=== PATIENT | female | born 1975 | race Caucasian/White ===

== ENCOUNTER → 2019-12-10 15:03 | Outpatient (CLI) | payer OTHER, SELFPAY ==
--- NOTE | ~2019-12-10 | MM_ITS ---
EXAMINATION: MM screening [place] [facility] BI w urvashi HISTORY: Screening mammogram TECHNIQUE: Craniocaudal and mediolateral oblique 3-D tomosynthesis images were obtained and synthetic 2-D images were generated. CAD analysis was submitted and interpreted. COMPARISON: 12/30/2017, 09/14/2016, 08/20/2013 BREAST PARENCHYMAL COMPOSITION: There are scattered areas of fibroglandular density. FINDINGS: RIGHT BREAST: There is a possible mass in the anterior third of the upper outer right breast best carla reciated 5 cm from the nipple on the craniocaudal view. LEFT BREAST: There is no evidence of suspicious mass, calcification, or architectural distortion to s uggest malignancy. There has been no significant interval change. IMPRESSION: 1. Possible right breast mass. 2. Additional mammographic views and possible breast ultrasound are recommended. BI-RADS Category 0: Incomplete: Needs additional imaging evaluation. Reviewed, dictated and finalized at location B. IMPRESSION: 1. Possible right breast mass. 2. Additional mammographic views and possible breast ultrasound are recommended . BI-RADS Category 0: Incomplete: Needs additional imaging evaluation.
== END ==
PROVIDERS: Visit Provider Nurse Practitioner
DX: Z12.31 Encounter for screening mammogram for malignant neoplasm of breast (principal); R92.8 Other abnormal and inconclusive findings on diagnostic imaging of breast
CPT/HCPCS: 77063; 77067

== ENCOUNTER → 2019-12-31 08:19 | Outpatient (CLI) | payer OTHER, SELFPAY ==
--- NOTE | ~2019-12-31 | MMUS_ITS ---
EXAMINATION: MM diagnostic mammo unilat RT, US breast RT limited HISTORY: Possible right breast mass in anterior third of upper outer quadrant TECHNIQUE: Additional 3-D tomosynthesis images of the right breast were performed and synthetic 2-D i mages were generated. CAD analysis was submitted and interpreted. High resolution upper outer quadran t right breast ultrasound was performed. COMPARISON: 12/10/2019 bilateral digital screening mammogram FINDINGS: MAMMOGRAPHIC FINDINGS: An approximately 9 mm circumscribed opacity is noted anteriorly in the upper-outer quadrant of the ri ght breast. ULTRASOUND: 10:00 4 cm from nipple, right breast: 7 x 9 mm simple cyst with through transmission posterior enhanc ement. No suspicious mass or shadowing is detected. IMPRESSION: 1. Benign 7 x 9 mm 10:00 right breast cyst 2. Routine mammographic screening is recommended BI-RADS Category 2: Benign finding(s). Reviewed, dictated and finalized at location A. IMPRESSION: 1. Benign 7 x 9 mm 10:00 right breast cyst 2. Routine mammographic screening is recommended BI-RADS Category 2: Benign finding(s).
== END ==
PROVIDERS: PCP Family Medicine; Visit Provider Obstetrics & Gynecology Gynecology
DX: R92.8 Other abnormal and inconclusive findings on diagnostic imaging of breast (principal)
CPT/HCPCS: 76642; 77065

== ENCOUNTER → 2020-12-25 01:46 | Outpatient (CLI) | payer OTHER, SELFPAY ==
[2020-12-25 17:52] LABS: SARS-CoV-2 RNA PCR Negative
== END ==
PROVIDERS: PCP Family Medicine; Visit Provider Physician Assistant
DX: R05 Cough (principal); Z20.822 Contact with and (suspected) exposure to COVID-19
CPT/HCPCS: C9803; U0003; U0005

== ENCOUNTER 2021-05-30 18:28 | Emergency (ER) | payer OTHER, SELFPAY ==
[2021-05-30 18:40] VITALS: BP 134/79; PULSE 87; RESP 18; TEMP 36.5; O2SAT 99
--- NOTE | 2021-05-30 18:54 | ED.URI ---
HPI - URI/Sore Throat General Chief Complaint: Upper Respiratory Infection Stated Complaint: sorethroat,bilateral ear drainage Time Seen by Provider: 05/30/21 18:50 Source: patient, RN notes reviewed and old records reviewed History of Present Illness HPI Narrative: 46-year-old female who presents to [facility] care with complaints of sore throat, cough and congestion, loss of voice, ear drainage, for about one week duration. Patient states that she works as teacher in high school at [employer] and is exposed to all kinds of germs. Patient also states that she has hiatal hernia and acid reflux and problems with losing her voice at least once yearly. Patient has had COVID-vaccine and booster and also flu shot. Patient denies any known fever chills or sweats or any body aches. Patient states that she has been taking oral cough drops for her cough and to soothe her throat. Related Data Home Medications Medication Instructions Recorded Confirmed omeprazole 20 mg PO DAILY 05/27/19 05/30/21 sertraline 100 mg PO DAILY 05/27/19 05/30/21 Allergies Allergy/AdvReac Type Severity Reaction Status Date / Time bacitracin Allergy Mild RASH Verified 05/30/21 18:53 gramicidin D Allergy Mild RASH Verified 05/30/21 18:53 polymyxin B Allergy Mild RASH Verified 05/30/21 18:53 latex Allergy Unknown Rash Verified 05/30/21 18:53 Review of Systems Review of Systems: CONSTITUTIONAL: Denies fever, chills, or sweats. EYES: Denies visual changes, redness, or discharge. ENT: Denies rhinorrhea, congestion, positive for sore throat,reports fullness to ears, raspy voice CARDIOVASCULAR: Denies chest pain, palpitations, or edema. RESPIRATORY: positive for cough no dyspnea. GASTROINTESTINAL: Denies abdominal pain, nausea, vomiting, or diarrhea. GENITOURINARY: Denies dysuria or hematuria. SKIN: Denies rash or itching. MUSCULOSKELETAL: Denies back pain, joint pain, or myalgia. NEUROLOGIC: Denies headache, numbness, or weakness. PSYCHIATRIC: Denies anxiety or depression. All systems reviewed & are unremarkable except as noted in HPI and below PMFSH Past Medical History Medical History (Updated 05/30/21 @ 19:17 by Julianne Nur NP) DAVID (generalized anxiety disorder) GERD (gastroesophageal reflux disease) Hiatal hernia HLD (hyperlipidemia) HTN (hypertension) NICHO (obstructive sleep apnea) Type 2 diabetes mellitus without complications Surgical History Surgical History (Updated 05/30/21 @ 19:07 by Julianne Nur NP) History of ankle surgery ORIF right ankle History of tonsillectomy and adenoidectomy Previous section Family History Family History Sibling Hypertension Father Family history of diabetes mellitus in first degree relative Other Diabetes mellitus Family history of arthritis Family history of liver disease Social History Social History Smoking packs per day: 0.5 Smoking cigarettes per day: 10.0 Years smoked: 20 Smoking pack-years: 10.00 Smoking status: Current every day smoker Tobacco type: cigarettes Second hand tobacco smoke exposure: No Alcohol intake: current Drinks per week: 1 Substance use: never Substance use type: does not use Gender identity (if verbalized by the patient): Female Sexual Orientation (if Verbalized by the Patient): Straight or Heterosexual Comments At time of signature, agree with nursing past medical, surgical, social and family history. There is no relevant family history pertinent to the presenting complaint Exam Narrative: GENERAL: Well-appearing, well-nourished,obese and in no acute distress. HEAD: Normocephalic, atraumatic. EYES: PERRLA and EOMI. ENT: Nares patent with clear rhinorrhea no epistaxis. Mucous membranes moist.TM's normal with good light reflex,no drainage observed,Throat red with no lesions or exudates, no tonsils present. NECK: Supp
== END 2021-05-30 19:23 | disposition home or self-care (01) ==
PROVIDERS: Emergency Provider Registered Nurse; PCP Family Medicine
DX: J02.9 Acute pharyngitis, unspecified (principal); J06.9 Acute upper respiratory infection, unspecified; Z20.822 Contact with and (suspected) exposure to COVID-19; F17.210 Nicotine dependence, cigarettes, uncomplicated; K21.9 Gastro-esophageal reflux disease without esophagitis; E78.5 Hyperlipidemia, unspecified; I10 Essential (primary) hypertension; G47.33 Obstructive sleep apnea (adult) (pediatric); E11.9 Type 2 diabetes mellitus without complications; F41.1 Generalized anxiety disorder
CPT/HCPCS: 87081; 87426; 87880; 99213; C9803; G0463

== ENCOUNTER → 2021-06-15 12:13 | Outpatient (CLI) | payer OTHER, SELFPAY ==
--- NOTE | ~2021-06-15 | MM_ITS ---
EXAMINATION: MM screening [facility] BI w urvashi HISTORY: Screening mammogram TECHNIQUE: Craniocaudal and mediolateral oblique 3-D tomosynthesis images were obtained and synthetic 2-D images were generated. CAD analysis was submitted and interpreted. COMPARISON: 12/31/2019, 12/10/2019, 819, 09/14/2016 BREAST PARENCHYMAL COMPOSITION: There are scattered areas of fibroglandular density. FINDINGS: A cyst is noted in the upper-outer quadrant of the right breast. There is no evidence of mayer spicious mass, calcification, or architectural distortion to suggest malignancy in either breast. The re has been no suspicious interval change. IMPRESSION: 1. No mammographic evidence of malignancy. 2. Recommend routine screening mammography in one year. BI-RADS Category 2: Benign finding(s). Reviewed, dictated and finalized at location A. ICAL THERAPY RESIDENT
== END ==
PROVIDERS: PCP Family Medicine; Visit Provider Nurse Practitioner
DX: Z12.31 Encounter for screening mammogram for malignant neoplasm of breast (principal)
CPT/HCPCS: 77063; 77067

== ENCOUNTER 2022-07-14 16:54 | Outpatient (CLI) | payer OTHER, SELFPAY ==
--- NOTE | ~2022-07-14 | CT_ITS ---
EXAMINATION: CT abdomen pelvis w con INDICATION: Bloating and abdominal pain TECHNIQUE: Computed tomographic images of the abdomen and pelvis were obtained after the administrati on of 100 cc of Omnipaque 350 intravenous contrast. The dose-length product (DLP) was 1454.52 mGy-cm. Automated exposure control and iterative reconstruction technique were employed. COMPARISON: None available FINDINGS: Minimal dependent atelectasis is present in the lung bases. The heart size is normal. The l iver, spleen, pancreas, and adrenal glands are normal. A stone is present in the nondistended gallbla dder. There is a 6 mm nonobstructing stone of the left kidney lower pole there is a 1.8 cm soft tissu e density lesion of the left kidney upper pole. Smaller hypoattenuating lesions of the kidneys, measu ring up to 6 mm on the right are too small to characterize but may represent cysts. No pathologically enlarged abdominal or pelvic lymph nodes are identified. No free intraperitoneal gas or evidence of bowel obstruction. The appendix is normal. There is mild lumbar spondylosis. IMPRESSION: 1. No CT correlate for the patient's symptoms. 2. Indeterminate lesion of the left kidney upper pole. Follow-up CT or MRI without and with contrast is recommended. 3. Nonobstructing left nephrolithiasis. 4. Cholelithiasis without evidence of cholecystitis. Reviewed, dictated and finalized at location F. SMITH IMPRESSION: 1. No CT correlate for the patient's symptoms. 2. Indeterminate lesion of the left kidney upper pole. Follow-up CT or MRI with out and with contrast is recommended. 3. Nonobstructing left nephrolithiasis. 4. Cholelithiasis without evidence of cholecystitis.
[2022-07-14 17:18] LABS: Estimated Glomerular Filt Rate > 60
== END 2022-07-14 16:55 | disposition home or self-care (01) ==
LOC: ANHIMG 16:56
PROVIDERS: PCP Family Medicine; Visit Provider Physician Assistant
DX: R10.9 Unspecified abdominal pain (principal); R14.0 Abdominal distension (gaseous); R55 Syncope and collapse; N20.0 Calculus of kidney; K80.20 Calculus of gallbladder without cholecystitis without obstruction; N28.9 Disorder of kidney and ureter, unspecified
CPT/HCPCS: 74177; Q9967

== ENCOUNTER 2022-07-28 10:04 | Outpatient (CLI) | payer OTHER, SELFPAY ==
--- NOTE | ~2022-07-28 | MR_ITS ---
EXAMINATION: MR abdomen wo/w con DATE: 07/28/2022 10:53 INDICATION: Indeterminate left renal lesion on prior CT TECHNIQUE: Magnetic resonance imaging (MRI) of the abdomen was performed without and with 20 mL Multi solomon intravenous contrast. Sequences included coronal T2-weighted SS-FSE, coronal and axial FS 2D-F IESTA, axial STIR FSE, axial T2-weighted SS-FSE, axial T2-weighted FS SS-FSE, axial diffusion-weighte d SE, axial dual-echo T1-weighted FSPGR, and axial and coronal T1-weighted LAVA. Postcontrast axial T 1-weighted LAVA images were obtained in a time course. Postcontrast coronal T1-weighted LAVA images w ere obtained. COMPARISON: CT dated 07/14/2022 FINDINGS: Heart size is normal. No pericardial or pleural effusion. Low signal gallstone at the neck of the oth erwise normal gallbladder. Liver, spleen, pancreas and bilateral adrenal glands are normal. Nonenhanc ing 1.8 cm complex left renal cyst corresponding to the lesion of concern on prior CT which demonstra haider dependent region of increased T1 and decreased T2 signal consistent with proteinaceous fluid or b lood. There are a couple additional more typical T2 hyperintense nonenhancing simple cysts measuring 8 mm on the right and 7 mm on the left. Visualized portion of the bowels are unremarkable with no obs truction. Couple nonenhancing left adnexal cyst, the larger measuring 2.4 cm . No pathologically enla rged abdominal or upper pelvic lymphadenopathy. Bones are unremarkable with normal marrow signal thro ughout. IMPRESSION: 1. Bilateral renal cysts including a complex 1.8 cm likely proteinaceous/hemorrhagic nonenhancing cys t at the upper pole of the left kidney corresponding to the lesion of concern on prior CT. 2. Cholelithiasis. Reviewed, dictated and finalized at location B. IMPRESSION: 1. Bilateral renal cysts including a complex 1.8 cm likely proteinaceous/hemorr hagic nonenhancing cyst at the upper pole of the left kidney corresponding to t he lesion of concern on prior CT. 2. Cholelithiasis.
== END 2022-07-28 10:05 ==
LOC: MICIMG 10:06
PROVIDERS: PCP Family Medicine; Visit Provider Physician Assistant
DX: N28.9 Disorder of kidney and ureter, unspecified (principal); N28.1 Cyst of kidney, acquired; K80.20 Calculus of gallbladder without cholecystitis without obstruction
CPT/HCPCS: 74183; A9577

== ENCOUNTER → 2022-09-29 13:49 | Outpatient (CLI) | payer OTHER, SELFPAY ==
--- NOTE | ~2022-09-29 | US_ITS ---
EXAMINATION: US pelvic complete DATE: 09/29/2022 14:09 INDICATION: Menorrhagia and anemia Comparison:12/21/2027 TECHNIQUE: Multiple transabdominal sonographic images of the pelvis performed. FINDINGS: The uterus measures 7.5 x 4.2 x 4.5 cm. The endometrial complex measures 7 mm. The right ovary measures 3.7 x 2.3 x 2.4 cm and the left ovary measures 3.6 x 2.3 x 3.8 cm. There ar e small follicles in each ovary. Normal doppler signal in both ovaries. There is no free fluid in the pelvis. There are no abnormal masses seen on either side. IMPRESSION: 1. Unremarkable pelvic ultrasound. Reviewed, dictated and finalized at location B.
== END ==
PROVIDERS: PCP Obstetrics & Gynecology Gynecology; Visit Provider Obstetrics & Gynecology Gynecology
DX: N92.0 Excessive and frequent menstruation with regular cycle (principal); D50.9 Iron deficiency anemia, unspecified
CPT/HCPCS: 76856

== ENCOUNTER → 2023-01-19 13:54 | Outpatient (CLI) | payer OTHER, SELFPAY ==
--- NOTE | ~2023-01-19 | MM_ITS ---
EXAMINATION: MM screening [facility] BI w urvashi HISTORY: Screening mammogram TECHNIQUE: Craniocaudal and mediolateral oblique 3-D tomosynthesis images were obtained and synthetic 2-D images were generated. CAD analysis was submitted and interpreted. COMPARISON: June 15, 2021 bilateral screening mammogram December 31, 2019 diagnostic right mammogram and limited right breast ultrasound 12/10/2019 bilateral screening mammogram BREAST PARENCHYMAL COMPOSITION: There are scattered areas of fibroglandular density. FINDINGS: Diminished size of previous reported cyst in the upper outer quadrant of the right breast f rom approximately 10 mm to 7 mm since June 15, 2021. Scattered occasional smaller low-density circ umscribed opacities of the breasts. There is no evidence of suspicious mass, calcification, or architectural distortion to suggest malign cristin in either breast. There has been no suspicious interval change. IMPRESSION: 1. No mammographic evidence of malignancy. 2. Recommend routine screening mammography in one year. BI-RADS Category 2: Benign finding(s). Reviewed, dictated and finalized at location A.
== END ==
PROVIDERS: PCP Obstetrics & Gynecology Gynecology; Visit Provider Obstetrics & Gynecology Gynecology
DX: Z12.31 Encounter for screening mammogram for malignant neoplasm of breast (principal)
CPT/HCPCS: 77063; 77067

== ENCOUNTER 2023-09-03 14:24 | Outpatient (CLI) | payer OTHER, SELFPAY ==
--- NOTE | ~2023-09-03 | XR_ITS ---
XR knee RT min 4V 09/03/2023 14:47 Indication: Right knee pain Procedure: 4 views right knee Comparison: No prior studies for comparison. Findings: There is tricompartment osteoarthritis, most advanced in the medial compartment. No fractur e or traumatic malalignment. Small joint effusion. 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 Reviewed, dictated and finalized at location B. 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
== END 2023-09-03 14:25 ==
LOC: MICIMG 14:26
PROVIDERS: PCP Physician Assistant; Visit Provider Physician Assistant
DX: M17.11 Unilateral primary osteoarthritis, right knee (principal)
CPT/HCPCS: 73564